=== PATIENT | female | born 1940 | race Caucasian/White ===

== ENCOUNTER 2017-02-24 22:24 | Observation (INO) | payer MEDICARE, SELFPAY | END 2017-02-26 13:15 | disposition home health service (06) | PROVIDERS: Admitting Provider Family Medicine; Emergency Provider Emergency Medicine; Family Provider Family Medicine; Visit Provider Family Medicine | DX: J98.01 Acute bronchospasm (principal); Z72.0 Tobacco use; E11.9 Type 2 diabetes mellitus without complications; I10 Essential (primary) hypertension | CPT/HCPCS: 36415; 71010; 71020; 71275; 80053; 81001; 82150; 82550; 82553; 82962; 83036; 83605; 83690; 83880; 84443; 84484; 85025; 85378; 87040; 87275; 87276; 93005; 94640; 94760; 96365; 96375; 99285; G0378; J2405; Q9967 ==

== ENCOUNTER → 2017-05-21 07:43 | Outpatient (CLI) | payer MEDICARE, SELFPAY ==
--- NOTE | 2017-05-21 07:46 | NM_ITS ---
CARDIOLITE SPECT MYOCARDIAL PERFUSION SCAN, REST AND STRESS: EXERCISE STRESS [facility] REVIEW QGS EF AND WALL MOTION EVALUATION: QPS - PERFUSION EVALUATION HISTORY: SOB, Fatigue, DM DOSE: 9.90 mCi technetium 99m mibi intravenously at rest followed by 29.0 mCi technetium 99m mibi following the intravenous ministration of 0.4 mg of Lexiscan. Resting blood pressure is 139/81. Stress blood pressure 111/53. FINDINGS: Ejection fraction is calculated to be 74%. SPECT images reveal severely decreased activity throughout the entire inferior wall. Rest images reveal virtually no change. Gated images calculated ejection fraction of 74% with normal wall motion IMPRESSION: Large inferior wall defect associated with normal wall motion. It is unusual for women to develop diaphragm attenuation although it is possible based on body habitus. Clinical correlation is advised
--- NOTE | 2017-05-21 07:46 | CA_ITS ---
PROCEDURE: 2-D M-mode and color Doppler study INDICATIONS FOR THE TEST: Chest pain COPD Heart Murmur Tobacco SmokingX Palpitations Fatigue Syncope EdemaX Hypertension Diabetes Mellitus Rheumatic Fever SOBXXDOEXObesityXHyperlipidemia Family History HD Additional History PATIENT INFORMATION HEIGHT: 64 WEIGHT:238 GENDER: Female B/P:112/80 2-D/M-MODE INTERPRETATION: 2-D MEASUREMENTS OBSERVED VALUES IN CMS Right Ventricular Dimension (RVDd) 1.7 Interventricular Septum (Thickness)(IVsd) .9 Left Ventricular Internal Dimensions(LVIDd) 5.6 Left Ventricular Posterior Wall (Thickness)(LVPWd) .9 Aortic Root 2.8 Aortic Cusp Separation 1.6 Left Atrial Dimensions (LAD) 3.4 2D 1. Left atrium is mildly enlarged, left ventricle is normal size, left ventricle wall thickness is upper limit of the normal, visually estimated ejection fraction 55% with no obvious regional wall motion abnormality. 2. The right atrium and right ventricle are normal size and contractility. 3. The aortic valve is minimally thickened and fibrosed. 4. The mitral and tricuspid valve leaflets are minimally thickened. 5. The pulmonic valve is poorly visualized. 6. No significant pericardial effusion noted. DOPPLER INTERROGATION: Doppler interrogation of the aortic, mitral and tricuspid valvular presence of mild mitral and tricuspid regurgitation, tricuspid and jet velocity is insufficient for calculation of the right ventricular systolic pressure, grade 1 diastolic dysfunction seen without tissue Doppler evidence of raised left atrial pressure. CONCLUSION: 1. Mildly enlarged left atrium, normal left ventricular size, visually estimated ejection fraction 55% with no obvious regional wall motion abnormality, grade 1 diastolic dysfunction seen without tissue Doppler evidence of raised left atrial pressure. 2. Mild mitral and tricuspid regurgitation 3. No significant pericardial effusion noted.
--- NOTE | 2017-05-21 08:51 | HMH.ITSHM ---
PREDNISONE LASIX MULTIVITAMIN METFORMIN ADVAIR ALLBUTEROL SPIRONOLACTONE OXYGEN
== END ==
PROVIDERS: Family Provider Family Medicine; PCP Family Medicine; Visit Provider Internal Medicine
DX: R06.02 Shortness of breath (principal)
CPT/HCPCS: 78452; 93017; 93306; A9502; J2785

== ENCOUNTER 2017-05-30 06:54 | Day surgery (SDC) | payer MEDICARE, SELFPAY ==
[2017-05-30] VITALS (17 sets, daily range): BP systolic 94–155; BP diastolic 46–70; PULSE 64–87; RESP 16–20; TEMP 36.6; O2SAT 90–98; BMI 40.7; BMI 40.6
--- NOTE | 2017-05-30 06:58 | IR_ITS ---
CARDIAC CATHETERIZATION DATE OF CATHETERIZATION:05/30/2017 9:12 AM PROCEDURES: 1. Right heart catheterization 2. Left heart catheterization 3. Left ventriculogram 4. Selective coronary angiogram INDICATION FOR TEST: 1. Abnormal Myoview 2. 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 COMPLICATIONS: None ESTIMATED BLOOD LOSS: Less than 10 ml. TECHNIQUE: One percent lidocaine was used to anesthetize the right anterior aspect of the right wrist. The right radial artery was accessed via the Seldinger technique and a 6 Telugu hydrophilic sheath was placed in the right radial artery. Following this one percent lidocaine was used to anesthetize the right anterior aspect of the right neck. The right internal jugular vein was accessed via the Seldinger technique and a 7 Telugu sheath was placed in the right internal jugular vein. Following this an arterial cocktail was administered using heparin verapamil and nitroglycerin into the right radial sheath. A trap catheter was used to perform left heart catheterization left ventriculogram and selective coronary angiography while a [place]-Elisa catheter was used to perform right heart catheterization. Saturations were obtained in the pulmonary artery and right atrium. At the end of the procedure the arterial sheath was removed good hemostasis was achieved using Traclet band. Patient was transferred to the postop holding area in stable condition for venous sheath removal ANGIOGRAPHIC RESULTS: 1. The left main artery normal 2. The left anterior descending artery is normal 3. The circumflex artery is non dominant and is normal 4. The right coronary artery dominant normal 5. The V[place]LE[place]AS ventriculogram reveals normal 65% 6. The left ventricular end-diastolic pressure 10 HEMODYNAMICS: Pulmonary artery occlusion pressure is 10 mm Hg. Pulmonary arterial pressure is 25/15 mm Hg. Right atrial pressure is 10 mm Hg. SATURATIONS: PA is 79 %. RA is 79 %. IMPRESSION: 1. Normal coronary arteries 2. Normal ejection fraction 3. Normal left ventricular end-diastolic pressure 4. Normal cardiac and pulmonary pressures PLAN: 1. Patient's class IV symptoms appear to be from deconditioning rather than cardiopulmonary disease 2. Physical therapy weight loss and risk factor modification
[2017-05-30 07:57] LABS: Basophils # 0.1 K/mm3 (0-0.2); Basophils % 0.6 % (0.1-2.0); Eosinophils # 0.5 K/mm3 (0.0-0.4); Eosinophils % 5.8 % (0.1-12.0); Hematocrit 47.8 % (37.0-47.0); Hemoglobin 15.9 g/dL (12.2-16.2); Lymphocytes # 2.2 K/mm3 (0.7-4.5); Lymphocytes % 24.2 K/mm3 (10-50); Mean Corpuscular HGB Conc 33.4 g/dL (31.8-35.4); Mean Corpuscular Hemoglobin 31.5 pg (27.0-31.2); Mean Corpuscular Volume 94.6 fl (81-99); Mean Platelet Volume 9.3 fl (7.4-10.4); Monocytes # 0.5 K/mm3 (0.1-1.0); Monocytes % 6.1 % (1.7-9.3); Neutrophils # 5.6 K/mm3 (1.8-7.8); Neutrophils % 63.3 % (37.0-80.0); Platelet Count 224 K/mm3 (142-424); Red Blood Count 5.05 M/mm3 (4.20-5.40); Red Cell Distribution Width 12.9 % (11.5-17.5); White Blood Count 8.9 K/mm3 (4.8-10.8)
[2017-05-30 08:17] LABS: Anion Gap 11.5 mEq/L (5-15); Blood Urea Nitrogen 39 mg/dL (7-18); Carbon Dioxide 29 mmol/L (21.0-32.0); Chloride 98 mmol/L (98-107); Creatinine Clearance Estimated 53 mL/min (0-300); Creatinine,Serum 1.44 mg/dL (0.55-1.02); Estimated Glomerular Filt Rate 35 ml/min (>60); GFR (African American) 43 ML/MIN (>60); Potassium 4.5 mmoL/L (3.5-5.1); Sodium 134 mmol/L (136-145)
[2017-05-30 08:30] LABS: Glucose 99 mg/dL (74-106)
[2017-05-30 10:25] LABS: CATHL Arterial O2 SAT 79.2 % (90-100); CATHL Venous O2 SAT 79.2 % (75-80)
== END 2017-05-30 13:15 | disposition home or self-care (01) ==
LOC: CATHLAB 06:57
PROVIDERS: Family Provider Family Medicine; PCP Family Medicine; Visit Provider Internal Medicine
DX: I50.9 Heart failure, unspecified (principal); R06.02 Shortness of breath; R94.39 Abnormal result of other cardiovascular function study; I10 Essential (primary) hypertension; I20.9 Angina pectoris, unspecified
CPT/HCPCS: 80048; 82810; 85025; 93460; 99152; C1725; C1769; C1894; J1644; Q9967

== ENCOUNTER → 2019-03-24 14:20 | Outpatient (CLI) | payer MEDICARE, OTHER, SELFPAY ==
[2019-03-24 14:46] LABS: Blood Urea Nitrogen 14 mg/dL (7-18); Creatinine,Serum 0.96 mg/dL (0.55-1.02); Estimated Glomerular Filt Rate 56 ml/min (>60); GFR (African American) 68 ML/MIN (>60)
--- NOTE | 2019-03-24 15:02 | MR_ITS ---
PROCEDURE: MR HEAD/BRAIN WO/W CON CLINICAL INDICATION: LOSS OF BALANCE, FALLS FREQUENTLY COMPARISON: No exams were available for comparison TECHNIQUE: Routine multiplanar multisequence exam with/without contrast was performed.. 22 milliliters of ProHance was administered. FINDINGS: There is atrophy compatible with the stated age. A moderate amount of nonenhancing FLAIR/T2 hyperintensity is seen in the bilateral cerebral white matter and in the basilar betsy likely due to small bricklayer helper vessel ischemic gliotic disease. There is no acute infarction intracranial hemorrhage mass mass effect or extra-axial fluid collection. There is mild mucosal thickening of sinusitis in the bilateral maxillary sinuses. a.m. 9 millimeter postinflammatory mucous retention cyst is seen in the right maxillary sinus and a 5 millimeter 1 in the left maxillary. There is mild partial opacification of ethmoid air cells. IMPRESSION: No acute intracranial pathology. 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 Sinusitis. Dictated by: Jack Salinas 03/24/2019 17:29 Electronically signed by Jack Salinas in [place] 03/24/2019 17:29
== END ==
PROVIDERS: PCP Family Medicine; Visit Provider Family Medicine
DX: R26.89 Other abnormalities of gait and mobility (principal); R29.6 Repeated falls; Z99.89 Dependence on other enabling machines and devices
CPT/HCPCS: 36415; 70553; 82565; 84520; A9576

== ENCOUNTER → 2019-03-31 12:48 | Outpatient (CLI) | payer MEDICARE, OTHER, SELFPAY ==
--- NOTE | 2019-03-31 12:54 | CT_ITS ---
PROCEDURE: CT LUNG SCREENING CLINICAL INDICATION: HX TOBACCO USE Forty pack-year smoking history, asymptomatic for lung cancer COMPARISON: [facility] CTA-CHEST from 02/25/2017 TECHNIQUE: The exam was performed on a GE Light Speed [address] scanner using 2.90 mGy CTDI. A low dose helical CT CHEST was performed on a multi-detector scanner. All CT scans at the facility use one or more dose reduction, viz: automated exposure control, ma/kV adjustment per patient size (including targeted exams where dose is matched to indication, i.e. head), or iterative reconstruction technique. The LDCT was performed in a facility that meets the criteria for the screening program. Data regarding this exam was submitted to ACR which is an approved registry. The order for this exam indicates that it came as a result of a lung cancer screening counseling shard decision-making visit that included all the elements required of such a visit including smoking cessation. The radiologist interpreting this exam meets the CMS criteria for the LDCT lung cancer screening program. The exam is reported using the Lung-RADS classification scale and reported to the ACR registry. NOTE: This study was performed for the specific purposes of lung cancer screening and is not an alternative to diagnostic chest CT. RADIATION DOSE: CTDI vol(CT dose Index-volume) = 2.90mG DLP (Dose Length Product) = 108.90 mGcm FINDINGS: Changes of COPD. Old granulomatous disease. Scattered areas of scarring. No suspicious pulmonary nodules OTHER FINDINGS: Coronary artery calcifications. Mild pericardial thickening. Cholelithiasis IMPRESSION: Lung rads category 1, negative Cholelithiasis Recommend annual screening LD CT Dictated by: Geovanni Beatty MD 04/07/2019 10:25 Electronically signed by Geovanni Beatty MD in [place] 04/07/2019 10:25
--- NOTE | 2019-03-31 12:54 | XR_ITS ---
PROCEDURE: XR DEXA AXIAL SKELETON CLINICAL HISTORY: OSTEOPAROSIS COMPARISON: No exams were available for comparison FINDINGS: Total right femoral neck density is 0.813 grams/centimeters sq with a T-score of -1.1 consistent with osteopenia. Left hip density is 0.669 grams/centimeters sq with a T-score -2.2 consistent with osteopenia. L1-L4 density is 0.880 with a T-score of -1.5 consistent with osteopenia. IMPRESSION: Osteopenia with moderate fracture risk. Treatment advised. Suggest follow-up exam in 2 years. Dictated by: Geovanni Beatty MD 03/31/2019 19:02 Electronically signed by Geovanni Beatty MD in [place] 03/31/2019 19:02
--- NOTE | 2019-03-31 12:54 | MM_ITS ---
PROCEDURE: MM DIG SCREENING MAMM BI W/CAD CLINICAL INDICATION: SCREENIN COMPARISON: MM MAMMO DIGITAL SCREENING W CAD BILAT from 07/23/2017 MM MAMMO DIGITAL MINISTERIO DIAGN BILAT from 08/15/2017 MM MAMMO DIGITAL DIAGNOSTIC W CAD BILAT from 02/13/2018 , outside films TECHNIQUE: Standard CC and MLO images and 3D Tomosynthisis was obtained. R2 CAD reviewed. FINDINGS: Mild to moderate scattered fibroglandular densities are seen in both breasts. There are stable benign-appearing nodular densities deep to the nipple right breast. There is a mole marker right breast. There are couple of benign-appearing calcifications in each breast. There is a stable fatty replaced node left axilla. There is no suspicious lesion and no suspicious microcalcifications. Ministerio images were reviewed. IMPRESSION: Fibrofatty parenchyma with no suspicious lesions seen BI-RAD Category: 2 Benign Finding(s) FOLLOW-UP: 1YR 1 Year Follow-up (A letter has been sent to the patient regarding results of the study.) Dictated by: Dr. Neo Schroeder MD 04/04/2019 15:[address] Neo Schroeder MD in [place] 04/04/2019 15:14
== END ==
PROVIDERS: PCP Family Medicine; Visit Provider Family Medicine
DX: Z12.31 Encounter for screening mammogram for malignant neoplasm of breast (principal); Z87.891 Personal history of nicotine dependence; Z12.2 Encounter for screening for malignant neoplasm of respiratory organs; Z13.820 Encounter for screening for osteoporosis; M81.0 Age-related osteoporosis without current pathological fracture
CPT/HCPCS: 77063; 77067; 77080

== ENCOUNTER → 2019-05-06 10:42 | Outpatient (POV) | payer MEDICARE, OTHER, SELFPAY | PROVIDERS: PCP Otolaryngology; Visit Provider Otolaryngology | DX: Z00.00 Encounter for general adult medical examination without abnormal findings (principal) ==

== ENCOUNTER → 2019-05-21 08:59 | Outpatient (CLI) | payer MEDICARE, OTHER, SELFPAY ==
--- NOTE | 2019-05-21 09:03 | CA_ITS ---
APPROVED REPORT Hotel [employer] Motel Cleaning Supervisor: Lucero Mejias RVT Laterality: Bilateral Study Quality: Good Indications: Dizziness and Vertigo, Unsteady Gait Risk Factors Hypertension: Diabetes Doppler Spectral Velocity Analysis ECA (R) 119.00/12.00 cm/s ECA (L) 70.30/8.20 cm/s dICA (R) 71.10/19.50 cm/s dICA (L) 100.60/33.10 cm/s Maryjane (R) 53.10/16.50 cm/s Maryjane (L) 103.10/31.80 cm/s pICA (R) 62.20/16.80 cm/s pICA (L) 78.90/22.30 cm/s dCCA (R) 111.90/17.40 cm/s dCCA (L) 75.70/22.30 cm/s pCCA (R) 93.40/19.20 cm/s pCCA (L) 66.20/16.50 cm/s Vert (R) 92.80/21.00 cm/s Vert (L) 41.20/10.50 cm/s ICA/CCA 0.64 ICA/CCA 1.36 Conclusion Study suggests less than 20% stenosis of the right internal cartoid artery unchanged from the 07/25/11 study. Study suggests 20-49% (lower end of scale) of the left internal cartoid artery unchanged from the 07/25/11 study. Antegrade flow seen bilateral vertebral arteries. Electronically signed by : Geovanni Beatty MD 05/21/2019 20:19:44
== END ==
PROVIDERS: PCP Family Medicine; Visit Provider Otolaryngology
DX: R42 Dizziness and giddiness (principal)
CPT/HCPCS: 93880

== ENCOUNTER → 2019-06-02 09:29 | Outpatient (CLI) | payer MEDICARE, OTHER, MEDICAID, SELFPAY ==
--- NOTE | 2019-06-02 09:31 | CA_ITS ---
APPROVED REPORT EXAM: Comprehensive 2D, Doppler, and color-flow Echocardiogram Jacket Changer: Svetlana Rubin CRT Ht: 5 ft 3 in Wt: 250lbs BSA: 2.13 BP: 140/78 mmHg Indications: Shortness of Breath, Obesity, Syncope, Fatigue, Hypertension/HDD, smoker 2D Dimensions LVOT 1.96 cm (M/F) 1.5-2.5 M-Mode Dimensions RVDd 2.20 cm (0.9-2.6) LVDd 4.91 cm (3.5-5.7) LVDs 3.17 cm (3.5-5.7) IVSd 1.10 cm (0.6-1.1) PWd 1.10 cm (0.6-1.1) EF (Teich) 64.70% FS 35.40% EDV (Teich) 113.40 mL ESV (Teich) 40.00 mL LV Diastology E/A Ratio 0.77 Mitral Valve MV A Velocity 107.00 (40-130 cm/s) Left Ventricle Left atrium is mildly enlarged, left ventricle is normal size, mild concentric left ventricular hypertrophy, visually estimated ejection fraction 55% with no regional wall motion abnormality, grade 1 diastolic dysfunction seen without tissue Doppler evidence of raise left atrial pressure. Right Ventricle Right atrium and right ventricular normal size and contractility. Aortic Valve Aortic valve is minimally thickened and fibrosed, there is no aortic stenosis or aortic insufficiency. Mitral Valve Mitral valve is grossly normal, there is mild mitral regurgitation. Tricuspid Valve Tricuspid valve is grossly normal, there is mild tricuspid regurgitation, tricuspid regurgitation jet velocity is inadequate for calculation of the right ventricular systolic pressure. Pulmonic Valve Pulmonic valve is poorly visualized. Great Vessels Aortic root is normal size. Pericardium No significant pericardial effusion noted. Conclusion 1. Mildly enlarged left atrium, normal left ventricular size, mild concentric left ventricular hypertrophy, visually estimated ejection fraction 55% with no regional wall motion abnormality, grade 1 diastolic dysfunction seen without tissue Doppler evidence of raise left atrial pressure. 2. Mild mitral and tricuspid regurgitation. 3. No significant pericardial effusion noted. Electronically signed by : Yann Culver, 06/02/2019 17:43:01
== END ==
PROVIDERS: PCP Family Medicine; Visit Provider Urology
DX: R55 Syncope and collapse (principal); R06.02 Shortness of breath
CPT/HCPCS: 93270; 93306

== ENCOUNTER → 2020-10-08 13:42 | Outpatient (CLI) | payer MEDICARE, MEDICAID, SELFPAY ==
[2020-10-08 14:23] LABS: Basophils # 0.1 K/mm3 (0-0.2); Basophils % 1.6 % (0.1-2.0); Eosinophils # 0.4 K/mm3 (0.0-0.4); Eosinophils % 6.9 % (0.1-12.0); Hematocrit 44.1 % (37.0-47.0); Hemoglobin 14.9 g/dL (12.2-16.2); Lymphocytes # 1.5 K/mm3 (0.7-4.5); Lymphocytes % 24.1 % (10-50); Mean Corpuscular HGB Conc 33.9 g/dL (31.8-35.4); Mean Corpuscular Hemoglobin 31.2 pg (27.0-31.2); Mean Corpuscular Volume 91.9 fl (81-99); Mean Platelet Volume 8.7 fl (7.4-10.4); Monocytes # 0.4 K/mm3 (0.1-1.0); Monocytes % 5.7 % (1.7-9.3); Neutrophils # 3.8 K/mm3 (1.8-7.8); Neutrophils % 61.7 % (37.0-80.0); Platelet Count 210 K/mm3 (142-424); Red Blood Count 4.79 M/mm3 (4.20-5.40); White Blood Count 6.2 K/mm3 (4.8-10.8)
[2020-10-08 14:59] LABS: Chloride 93 mmol/L (98-107); Sodium 130 mmol/L (136-145)
[2020-10-08 15:00] LABS: Potassium 4.7 mmoL/L (3.5-5.1)
[2020-10-08 15:02] LABS: Blood Urea Nitrogen 15 mg/dl (7-17); Estimated Glomerular Filt Rate 60 ml/min (>60); GFR (African American) 73 ML/MIN (>60)
[2020-10-08 15:03] LABS: Anion Gap 11.7 mEq/L (5-15); Calcium 9.3 mg/dl (8.4-10.2); Carbon Dioxide 30 mmol/L (22.0-30.0); Glucose 127 mg/dl (74-100)
== END ==
PROVIDERS: Visit Provider Internal Medicine Cardiovascular Disease
DX: I10 Essential (primary) hypertension (principal); I25.10 Atherosclerotic heart disease of native coronary artery without angina pectoris; R06.02 Shortness of breath; R55 Syncope and collapse; R60.9 Edema, unspecified
CPT/HCPCS: 36415; 80048; 85025; U0003

== ENCOUNTER 2020-10-12 08:05 | Day surgery (SDC) | payer MEDICARE, MEDICAID, SELFPAY ==
[2020-10-12 08:14] VITALS: BMI 42.0
[2020-10-12 08:57] VITALS: BP 155/66; PULSE 66; RESP 13; TEMP 36.8; O2SAT 93
[2020-10-12 09:00] VITALS: PULSE 68
[2020-10-12 09:32] VITALS: BP 128/54; PULSE 68; RESP 18; O2SAT 95
[2020-10-12 09:46] VITALS: BP 130/78; PULSE 69; RESP 18; O2SAT 95
--- NOTE | 2020-10-12 12:16 | P.PCN_ITS ---
[facility] Loop Recorder Date: 10/12/20 Time: 09:30 Procedure Performed:: Implantable loop recorder Indication:: syncope Technique:: Patient was brought to the cardiac Special Education Paraprofessional. After informed consent obtained, 1% lidocaine with epinephrine was used to anesthetize the site along the left anterior aspect of the chest near the sternal border. Using the preformed scalpel, an incision was made and using the supplied preloaded apparatus, the loop recorder was placed subcutaneously without difficulty. Following the deployment of the loop recorder interrogation of the device was performed to ensure appropriate voltage was being detected. Once this was verified, Steri- Strips were placed over the incision and the patient was prepped to discharge home. Patient tolerated the procedure well with minimal discomfort. Impression:: Successful implantation of loop recorder Serial Number:: [id number] Plan:: routine post op care. Follow up in office in one week.
== END 2020-10-12 09:50 | disposition home or self-care (01) ==
LOC: CATHLAB 08:08
PROVIDERS: PCP Family Medicine; Visit Provider Internal Medicine
DX: R55 Syncope and collapse (principal); I25.10 Atherosclerotic heart disease of native coronary artery without angina pectoris; I10 Essential (primary) hypertension; F17.210 Nicotine dependence, cigarettes, uncomplicated; Z79.899 Other long term (current) drug therapy
CPT/HCPCS: 33285

== ENCOUNTER → 2021-10-14 12:55 | Outpatient (CLI) | payer MEDICARE, MEDICAID, SELFPAY | PROVIDERS: PCP Family Medicine; Visit Provider Family Medicine | DX: F32.9 Major depressive disorder, single episode, unspecified (principal) ==

== ENCOUNTER → 2021-10-25 14:22 | Outpatient (CLI) | payer MEDICARE, MEDICAID, SELFPAY ==
[2021-10-25 18:58] LABS: Alanine Aminotransferase 18 U/L (12-78); Albumin Level 4.1 g/dl (3.5-5.0); Albumin/Globulin Ratio 1.6 (1.1-1.8); Alkaline Phosphatase 103 U/L (38-126); Anion Gap 12.9 mEq/L (5-15); Aspartate Amino Transferase 24 U/L (14-36); Bilirubin,Total 0.3 mg/dl (0.2-1.3); Blood Urea Nitrogen 25 mg/dl (7-17); Carbon Dioxide 28 mmol/L (22.0-30.0); Chloride 98 mmol/L (98-107); Estimated Glomerular Filt Rate 48 ml/min (>60); GFR (African American) 58 ML/MIN (>60); Globulin 2.6 g/dL (1.3-3.2); Glucose 100 mg/dl (74-100); Potassium 4.9 mmoL/L (3.5-5.1); Sodium 134 mmol/L (136-145); Total Protein,Serum 6.7 g/dl (6.3-8.2)
[2021-10-25 19:27] LABS: Thyroid Stimulating Hormone 1.09 uIU/mL (0.465-4.68)
== END ==
PROVIDERS: PCP Family Medicine; Visit Provider Family Medicine
DX: F32.A Depression, unspecified (principal); I10 Essential (primary) hypertension
CPT/HCPCS: 80053; 84443

== ENCOUNTER → 2022-03-28 16:40 | Outpatient (CLI) | payer MEDICARE, SELFPAY ==
[2022-03-28 19:47] LABS: Alanine Aminotransferase 21 U/L (12-78); Albumin Level 4.4 g/dl (3.5-5.0); Albumin/Globulin Ratio 1.5 (1.1-1.8); Alkaline Phosphatase 62 U/L (38-126); Anion Gap 11.5 mEq/L (5-15); Aspartate Amino Transferase 36 U/L (14-36); Bilirubin,Total 1.1 mg/dl (0.2-1.3); Blood Urea Nitrogen 20 mg/dl (7-17); Calcium 9.2 mg/dl (8.4-10.2); Carbon Dioxide 29 mmol/L (22.0-30.0); Chloride 99 mmol/L (98-107); Estimated Glomerular Filt Rate 69 ml/min (>60); GFR (African American) 83 ML/MIN (>60); Glucose 88 mg/dl (74-100); Potassium 5.5 mmoL/L (3.5-5.1); Sodium 134 mmol/L (136-145); Total Protein,Serum 7.4 g/dl (6.3-8.2)
== END ==
PROVIDERS: PCP Family Medicine; Visit Provider Family Medicine
DX: I10 Essential (primary) hypertension (principal)
CPT/HCPCS: 80053

== ENCOUNTER 2022-03-31 15:26 | Emergency (ER) | payer MEDICARE, SELFPAY ==
[2022-03-31 15:28] VITALS: BP 161/49; PULSE 63; RESP 17; TEMP 36.8; O2SAT 97; BMI 32.5
[2022-03-31 15:39] VITALS: BP 158/52; PULSE 61; RESP 16; O2SAT 95
--- NOTE | 2022-03-31 15:39 | XR_ITS ---
FINAL REPORT CLINICAL HISTORY: fall with trauma to knee FINDINGS: Left knee Four views were obtained. There is no acute fracture or dislocation. The patient is status post arthroplasty change. The hardware is unremarkable. The bones are osteopenic. No soft tissue abnormality is identified. IMPRESSION: No acute process. Reviewed, Interpreted and Dictated by Dipak Loaiza MD Transcribed by Lulu Ace Authenticated and [facility]
--- NOTE | 2022-03-31 15:51 | HMH.EDGENADL ---
Discharge Plan Disposition Patient Disposition: Home, Self-Care Condition: Good Prescriptions Prescriptions: No Action meclizine 25 mg tablet 12.5 mg PO DAILY PRN citalopram 20 mg tablet 10 mg PO DAILY aspirin 81 mg tablet,delayed release (DR/EC) 81 mg PO DAILY Qty: 90 0RF bisoprolol fumarate 10 mg tablet 10 mg PO DAILY Qty: 30 2RF bupropion HCl 150 mg tablet extended release 24 hr 150 mg PO DAILY Qty: 90 1RF hydrochlorothiazide 25 mg tablet 25 mg PO DAILY Qty: 90 3RF meloxicam 7.5 mg tablet 7.5 mg PO DAILY Qty: 90 1RF Referrals Follow up/Referrals: Dipak Michele MD [Primary Care Provider] - See instructions Activity Restrictions/Add. Instructions Additional Instructions/Restrictions: Return immediately to the emergency department if you feel worse in any way. Your x-rays today did not show any fractures or dislocations. Follow-up with your primary care doctor within about 1 week if you continue following frequently. Clinical Impressions Clinical Impression: Contusion of knee, left, Contusion, buttock Instructions Patient Instructions: DI for Contusion Discharge ED Provider: Carla Palafox Adult HPI General Chief complaint: PAIN Stated complaint: AM 1100@home injured L Knee Time Seen by Provider: 03/31/22 15:51 Mode of Arrival: Wheelchair Source of Information: Patient Limitations: No Limitations Description of Symptoms (Recalled from ER Triage Doc. by RN): Patient reports blacking out and falling yesterday. This morning she reports another fall; however, is not sure what happened exactly. She was seen by EMS after falling and refused transport. Bruising to left knee with difficulty bearing weight. History of Present Illness HPI narrative: The patient presents to the emergency department accompanied by her daughter after having fallen approximately 11 AM today. She sustained a left knee and hip injury. According to the daughter, the patient has been falling more frequently lately. The patient denies any other injuries. The patient denies having lost consciousness. Related Data Home Medications Medication Instructions Recorded Confirmed meclizine 25 mg tablet 12.5 mg PO DAILY PRN 12/02/21 03/28/22 citalopram 20 mg tablet 10 mg PO DAILY 02/10/22 03/28/22 Previous Rx's Medication Instructions Recorded aspirin 81 mg tablet,delayed 81 mg PO DAILY #90 tabs 03/29/22 release bisoprolol fumarate 10 mg tablet 10 mg PO DAILY #30 tabs 03/29/22 bupropion HCl 150 mg 24 hr tablet, 150 mg PO DAILY depression #90 tabs 03/29/22 extended release hydrochlorothiazide 25 mg tablet 25 mg PO DAILY #90 tabs 03/29/22 meloxicam 7.5 mg tablet 7.5 mg PO DAILY arthritis #90 tabs 03/29/22 Allergies Allergy/AdvReac Type Severity Reaction Status Date / Time nicotine Allergy Mild REACTION Verified 03/28/22 15:21 TO PATCH procaine [From Novocain] Allergy Unknown CONFUSION Verified 03/28/22 15:21 lisinopril AdvReac Mild COUGH Verified 03/28/22 15:21 [facility] Disclaimer: The information contained in this section may have been updated after the patient was seen, as this information can be updated by other users. Medical History (Updated 03/31/22 @ 16:20 by Carla Palafox MD) Cardiac dysrhythmia Coronary artery disease Depression Diabetes mellitus Edema HTN (hypertension) Muscle cramps SOB (shortness of breath) Syncope Venous insufficiency Surgical History History of loop recorder Social History Smoking Status: Never smoker second hand exposure: No alcohol intake: never current occupational status: retired Travel in the last 8 weeks: None household members: none housing: house current occupational exposures/hazards: No caffeine: No ROS Obtained: Yes All systems reviewed & no additional complaints except as docum
--- NOTE | 2022-03-31 15:53 | XR_ITS ---
FINAL REPORT CLINICAL HISTORY: pain post fall FINDINGS: Left hip Three views were obtained. There is no acute fracture or dislocation. The joint spaces appear normal. No soft tissue abnormality is identified. IMPRESSION: No acute process. Reviewed, Interpreted and Dictated by Dipak Loaiza MD Transcribed by Lulu Ace Authenticated and [facility]
[2022-03-31 16:30] VITALS: BP 148/56; PULSE 67; RESP 17; O2SAT 95
--- NOTE | 2022-03-31 16:49 | PC.NURSE ---
pt being D/C WITH DAUGHTER
[2022-03-31 16:51] VITALS: BP 121/89; PULSE 69; RESP 18; TEMP 36.8; O2SAT 98
== END 2022-03-31 16:56 | disposition home or self-care (01) ==
PROVIDERS: Emergency Provider Emergency Medicine; PCP Family Medicine
DX: S80.02XA Contusion of left knee, initial encounter (principal); S30.0XXA Contusion of lower back and pelvis, initial encounter; W19.XXXA Unspecified fall, initial encounter
CPT/HCPCS: 73502; 73562; 99284

== ENCOUNTER 2022-05-05 20:44 | Emergency (ER) | payer MEDICARE, SELFPAY ==
[2022-05-05 20:44] VITALS: BP 167/51; PULSE 79; RESP 16; TEMP 36.9; O2SAT 93; BMI 35.4
[2022-05-05 20:49] VITALS: BMI 35.4
--- NOTE | 2022-05-05 20:51 | ECG_ITS ---
APPROVED REPORT Exam: Resting ECG HR:78 bpm ECG Measurements Heart Rate 78 AXES MD 174 P 62 QRSd 93 QRS 64 QT 378 T 55 QTc 411 Conclusion SINUS RHYTHM NORMAL ECG UNCONFIRMED REPORT Electronically signed by : Jaxon Glaser MD 05/06/2022 11:46:51
--- NOTE | 2022-05-05 20:52 | XR_ITS ---
PROCEDURE INFORMATION: Exam: XR Chest Exam date and time: 05/05/2022 9:28 PM Age: 82 years old Clinical indication: Injury or trauma; Fall TECHNIQUE: Imaging protocol: Radiologic exam of the chest. Views: 1 view. COMPARISON: CT LUNG SCREENING 03/31/2019 1:00 PM FINDINGS: Tubes, catheters and devices: Cardiac monitoring device is in place. Lungs: Unremarkable. No consolidation. Pleural spaces: Unremarkable. No pleural effusion. No pneumothorax. Heart/Mediastinum: Cardiac silhouette is top-normal in size. Bones/joints: Left shoulder prosthesis is noted. IMPRESSION: No acute disease
--- NOTE | 2022-05-05 20:52 | CT_ITS ---
PROCEDURE INFORMATION: Exam: CT Maxillofacial Without Contrast Exam date and time: 05/05/2022 9:08 PM Age: 82 years old Clinical indication: Injury or trauma; Fall TECHNIQUE: Imaging protocol: Computed tomography of the face without contrast. Radiation optimization: All CT scans at this facility use at least one of these dose optimization techniques: automated exposure control; mA and/or kV adjustment per patient size (includes targeted exams where dose is matched to clinical indication); or iterative reconstruction. REPORTING DATA: Count of CT and Cardiac NM exams in prior 12 months: This patient has received 2 known CTs and 0 known cardiac nuclear medicine studies in the 12 months prior to the current study. COMPARISON: CT HEAD/BRAIN WO CON 05/05/2022 9:05 PM FINDINGS: This exam is limited due to patient motion. Orbital cavities: Orbits are normal. Globes are unremarkable. Bones/joints: No acute fracture. Paranasal sinuses: Mucosal thickening in the ethmoid and maxillary sinuses. The ostiomeatal units are patent bilaterally. Soft tissues: Unremarkable. IMPRESSION: No acute injury.
--- NOTE | 2022-05-05 20:52 | CT_ITS ---
PROCEDURE INFORMATION: Exam: CT Cervical Spine Without Contrast Exam date and time: 05/05/2022 9:10 PM Age: 82 years old Clinical indication: Injury or trauma; Fall TECHNIQUE: Imaging protocol: Computed tomography of the cervical spine without contrast. Radiation optimization: All CT scans at this facility use at least one of these dose optimization techniques: automated exposure control; mA and/or kV adjustment per patient size (includes targeted exams where dose is matched to clinical indication); or iterative reconstruction. REPORTING DATA: Count of CT and Cardiac NM exams in prior 12 months: This patient has received 2 known CTs and 0 known cardiac nuclear medicine studies in the 12 months prior to the current study. COMPARISON: CT FACIAL BONES WO CON 05/05/2022 9:08 PM FINDINGS: This exam is limited due to patient motion. Bones/joints: There are moderate degenerative changes present. Normal alignment. No acute fractures. Lungs: Lung apices are normal. Soft tissues: Unremarkable. IMPRESSION: No acute injury seen on a limited exam.
--- NOTE | 2022-05-05 20:52 | CT_ITS ---
PROCEDURE INFORMATION: Exam: CT Head Without Contrast Exam date and time: 05/05/2022 9:05 PM Age: 82 years old Clinical indication: Injury or trauma; Fall TECHNIQUE: Imaging protocol: Computed tomography of the head without contrast. Radiation optimization: All CT scans at this facility use at least one of these dose optimization techniques: automated exposure control; mA and/or kV adjustment per patient size (includes targeted exams where dose is matched to clinical indication); or iterative reconstruction. REPORTING DATA: Count of CT and Cardiac NM exams in prior 12 months: This patient has received 2 known CTs and 0 known cardiac nuclear medicine studies in the 12 months prior to the current study. COMPARISON: MR HEAD/BRAIN WO/W CON 03/24/2019 3:22 PM FINDINGS: Brain: Age appropriate atrophy and small vessel ischemic change. No evidence of intracranial hemorrhage, mass effect, midline shift or extra-axial fluid collections. Midline structures are normal. Bradley-white matter differentiation is normal. Cerebral ventricles: No ventriculomegaly. Paranasal sinuses: Mucosal thickening in the ethmoid and maxillary sinuses. Mastoid air cells: Visualized mastoid air cells are well aerated. Bones/joints: Unremarkable. No acute fracture. Soft tissues: Unremarkable. Vasculature: Carotid atherosclerotic calcification. IMPRESSION: No acute intracranial injury.
--- NOTE | 2022-05-05 20:52 | XR_ITS ---
PROCEDURE INFORMATION: Exam: XR Pelvis Exam date and time: 05/05/2022 9:28 PM Age: 82 years old Clinical indication: Injury or trauma; Fall TECHNIQUE: Imaging protocol: Radiologic exam of the pelvis. Views: 1 or 2 view. COMPARISON: CR XR HIP LT 2-3V W/PELVIS 03/31/2022 3:46 PM FINDINGS: Bones/joints: Unremarkable. No acute fracture. Soft tissues: Unremarkable. IMPRESSION: No acute findings.
--- NOTE | 2022-05-05 20:53 | XR_ITS ---
PROCEDURE INFORMATION: Exam: XR Left Wrist Exam date and time: 05/05/2022 9:28 PM Age: 82 years old Clinical indication: Injury or trauma; Other: Falll; Additional info: Fall TECHNIQUE: Imaging protocol: Radiologic exam of the left wrist. Views: 3 or more views. COMPARISON: No relevant prior studies available. FINDINGS: Bones/joints: Osseous alignment is normal. No acute fracture evident. Small enchondroma noted in the distal radius. Bones appear osteopenic. Moderate degenerative changes noted at the scaphotrapezoid joint. Soft tissues: Normal. IMPRESSION: Chronic osseous changes. No acute fracture
[2022-05-05 20:57] LABS: Basophils # 0.1 K/mm3 (0-0.2); Basophils % 0.9 % (0.1-2.0); Eosinophils # 0.3 K/mm3 (0.0-0.4); Eosinophils % 2.6 % (0.1-12.0); Hematocrit 44.2 % (37.0-47.0); Hemoglobin 14.5 g/dL (12.2-16.2); Lymphocytes # 1.2 K/mm3 (0.7-4.5); Lymphocytes % 11.4 % (10-50); Mean Corpuscular HGB Conc 32.9 g/dL (31.8-35.4); Mean Corpuscular Hemoglobin 30.7 pg (27.0-31.2); Mean Corpuscular Volume 93.2 fl (81-99); Mean Platelet Volume 8.1 fl (7.4-10.4); Monocytes # 0.5 K/mm3 (0.1-1.0); Monocytes % 4.3 % (1.7-9.3); Neutrophils # 8.5 K/mm3 (1.8-7.8); Neutrophils % 80.8 % (37.0-80.0); Platelet Count 161 K/mm3 (142-424); Red Blood Count 4.74 M/mm3 (4.20-5.40); Red Cell Distribution Width 13.6 % (11.5-17.5); White Blood Count 10.5 K/mm3 (4.8-10.8)
[2022-05-05 21:05] LABS: Alanine Aminotransferase 22 U/L (12-78); Albumin Level 3.9 g/dl (3.5-5.0); Albumin/Globulin Ratio 1.3 (1.1-1.8); Alkaline Phosphatase 79 U/L (38-126); Anion Gap 7.6 mEq/L (5-15); Aspartate Amino Transferase 39 U/L (14-36); Bilirubin,Total 1.1 mg/dl (0.2-1.3); Blood Urea Nitrogen 21 mg/dl (7-17); Calcium 8.9 mg/dl (8.4-10.2); Carbon Dioxide 27 mmol/L (22.0-30.0); Chloride 98 mmol/L (98-107); Creatine Kinase 172 U/L (30-135); Creatinine Clearance Estimated 61 mL/min (50-200); Estimated Glomerular Filt Rate 80 ml/min (>60); GFR (African American) 97 ML/MIN (>60); Glucose 98 mg/dl (74-100); Potassium 4.6 mmoL/L (3.5-5.1); Sodium 128 mmol/L (136-145); Total Protein,Serum 6.9 g/dl (6.3-8.2)
[2022-05-05 21:17] LABS: Troponin I 0.01 ng/ml (0.00-0.034)
--- NOTE | 2022-05-05 21:22 | HMH.EDFALL ---
Discharge Plan Disposition Patient Disposition: Home, Self-Care Prescriptions Prescriptions: No Action citalopram 20 mg tablet 10 mg PO DAILY aspirin 81 mg tablet,delayed release (DR/EC) 81 mg PO DAILY Qty: 90 0RF bisoprolol fumarate 10 mg tablet 10 mg PO DAILY Qty: 30 2RF bupropion HCl 150 mg tablet extended release 24 hr 150 mg PO DAILY Qty: 90 1RF hydrochlorothiazide 25 mg tablet 25 mg PO DAILY Qty: 90 3RF meloxicam 7.5 mg tablet 7.5 mg PO DAILY Qty: 90 1RF meclizine 25 mg tablet See Rx Instructions .ROUTE .COMPLEX Qty: 45 1RF Dose Instruction: TAKE 1/2 TO 1 TABLET BY MOUTH 3 TIMES DAILY NEEDED Rx Instructions: TAKE 1/2 TO 1 TABLET BY MOUTH 3 TIMES DAILY NEEDED Referrals Follow up/Referrals: Ryne SORENSON MD [Primary Care Provider] - See instructions Clinical Impressions Clinical Impression: Contusion of hip, left, Left wrist sprain, Fall, Concussion without loss of consciousness Instructions Patient Instructions: How to Prevent Falls Discharge ED Provider: Jair (ED)Erich Fall HPI General Chief Complaint: Fall Stated Complaint: FALL Time Seen by Provider: 05/05/22 21:22 Mode of Arrival: EMS Source of Information: Patient and EMS Limitations: No Limitations Description of Symptoms (Recalled from ER Triage Doc. by RN): pt states she rolled out of bed aroound 2pm this afternoon and laid on floor till 7:30 when daughter found pt. pt c/o SOA, head pain and lt wrist pain History of Present Illness HPI Narrative: pt reported rolled oob today and has wrist and hip pain - no fever or other c/o MD complaint: fall Onset (ago): hour(s) Fall from: out of bed Fall witnessed: no Place fall occurred: home Loss of consciousness: none Prolonged down time: unclear Symptoms prior to fall: none Location of injury - extremities: Left: thigh Severity: moderate Related Data Home Medications Medication Instructions Recorded Confirmed citalopram 20 mg tablet 10 mg PO DAILY 02/10/22 04/04/22 Previous Rx's Medication Instructions Recorded aspirin 81 mg tablet,delayed 81 mg PO DAILY #90 tabs 03/29/22 release bisoprolol fumarate 10 mg tablet 10 mg PO DAILY #30 tabs 03/29/22 bupropion HCl 150 mg 24 hr tablet, 150 mg PO DAILY depression #90 tabs 03/29/22 extended release hydrochlorothiazide 25 mg tablet 25 mg PO DAILY #90 tabs 03/29/22 meloxicam 7.5 mg tablet 7.5 mg PO DAILY arthritis #90 tabs 03/29/22 meclizine 25 mg tablet See Rx Instructions .Route 04/06/22 .COMPLEX #45 tabs Allergies Allergy/AdvReac Type Severity Reaction Status Date / Time nicotine Allergy Mild REACTION Verified 04/04/22 14:55 TO PATCH procaine [From Novocain] Allergy Unknown CONFUSION Verified 04/04/22 14:55 lisinopril AdvReac Mild COUGH Verified 04/04/22 14:55 [facility] Disclaimer: The information contained in this section may have been updated after the patient was seen, as this information can be updated by other users. Medical History (Updated 05/05/22 @ 23:47 by Erich Adam (ED)MD) Cardiac dysrhythmia Coronary artery disease Depression Diabetes mellitus Edema HTN (hypertension) Muscle cramps SOB (shortness of breath) Syncope Venous insufficiency Weakness Surgical History History of loop recorder Social History Smoking Status: Never smoker second hand exposure: No alcohol intake: never current occupational status: retired Travel in the last 8 weeks: None household members: none housing: house current occupational exposures/hazards: No caffeine: No ROS Obtained: Yes All systems reviewed & no additional complaints except as documented Physical Exam General General appearance: alert Head Head exam: normocephalic Eye Eye exam: Present PERRL and EOMI; Absent nystagmus ENT ENT exam: Present mucou
[2022-05-05 22:32] VITALS: BP 116/44; PULSE 86; O2SAT 92
[2022-05-05 22:34] LABS: Microscopic, Urine URINE MICROSCOPIC (MICROSCOPIC)
--- NOTE | 2022-05-05 22:37 | CT_ITS ---
PROCEDURE INFORMATION: Exam: CT Left Lower Extremity Without Contrast, Hip Exam date and time: 05/05/2022 11:08 PM Age: 82 years old Clinical indication: Pain; Hip; Left; Additional info: Hip pain after fall TECHNIQUE: Imaging protocol: CT of the left lower extremity without contrast was performed. Exam focused on the hip. Radiation optimization: All CT scans at this facility use at least one of these dose optimization techniques: automated exposure control; mA and/or kV adjustment per patient size (includes targeted exams where dose is matched to clinical indication); or iterative reconstruction. REPORTING DATA: Count of CT and Cardiac NM exams in prior 12 months: This patient has received 3 known CTs and 0 known cardiac nuclear medicine studies in the 12 months prior to the current study. COMPARISON: CR XR HIP LT 2-3V W/PELVIS 03/31/2022 3:46 PM FINDINGS: Bones/joints: Osseous alignment is normal. No acute fracture evident. No significant arthritic changes seen in the left hip. Soft tissues: Normal. Vasculature: Scattered vascular calcification is noted in the pelvis. IMPRESSION: No acute fracture
[2022-05-05 22:38] LABS: Appearance,Urine CLEAR (Clear); Bilirubin,Urine Negative (Negative); Blood, Urine TRACE-I (Negative); Color,Urine YELLOW (Yellow); Glucose,Urine (UA) Negative (Negative); Ketones,Urine TRACE (Negative); Leukocyte Esterase,Urine TRACE (Negative); Nitrate,Urine POSITIVE (Negative); Protein,Urine Negative (Negative); Specific Gravity, Urine 1.025 (1.005-1.030); Urobilinogen,Urine 0.2 EU/dl (0.2)
[2022-05-05 22:46] LABS: Bacteria,Urine 4+ /lpf; RBC,Urine Occasional #/hpf (0-3)
--- NOTE | 2022-05-05 23:02 | PC.NURSE ---
with pt permission this nurse updated pt daughter on pt condition at this time
--- NOTE | 2022-05-05 23:12 | PC.NURSE ---
PATIENT GIVEN PILLOW AND LIGHTS TURNED OFF, PATIENT REFUSED BLANKET
[2022-05-05 23:57] VITALS: BP 118/78; PULSE 74; RESP 16; TEMP 36.9; O2SAT 92
== END 2022-05-05 23:59 | disposition home or self-care (01) ==
PROVIDERS: Emergency Provider Emergency Medicine; PCP Family Medicine
DX: S06.0X0A Concussion without loss of consciousness, initial encounter (principal); S70.02XA Contusion of left hip, initial encounter; S63.502A Unspecified sprain of left wrist, initial encounter; W06.XXXA Fall from bed, initial encounter; Z86.79 Personal history of other diseases of the circulatory system; I25.10 Atherosclerotic heart disease of native coronary artery without angina pectoris; F32.A Depression, unspecified; E11.9 Type 2 diabetes mellitus without complications; R60.9 Edema, unspecified; I10 Essential (primary) hypertension; I87.2 Venous insufficiency (chronic) (peripheral)
CPT/HCPCS: 70450; 70486; 71045; 72125; 72170; 73110; 73700; 80053; 81001; 82550; 82553; 84484; 85025; 87086; 87088; 87186; 93005; 96361; 96374; 99285; J0131

== ENCOUNTER 2022-05-07 09:01 | Observation (INO) | payer MEDICARE, MEDICAID, SELFPAY ==
[2022-05-07] VITALS (14 sets, daily range): BP systolic 118–173; BP diastolic 52–70; PULSE 71–90; RESP 15–22; TEMP 36.6–36.8; O2SAT 92–95; BMI 41.8; BMI 42.5; BMI 36.1
--- NOTE | 2022-05-07 09:13 | HMH.EDGENADL ---
Discharge Plan Disposition Patient Disposition: Admitted as Observation Condition: Fair Prescriptions Prescriptions: No Action citalopram 20 mg tablet 10 mg PO DAILY bupropion HCl 150 mg tablet extended release 24 hr 150 mg PO DAILY Qty: 90 1RF meloxicam 7.5 mg tablet 7.5 mg PO DAILY Qty: 90 1RF aspirin 81 mg tablet,delayed release (DR/EC) 81 mg PO DAILY bisoprolol fumarate 10 mg tablet 10 mg PO DAILY meclizine 25 mg tablet 25 mg PO TID PRN (Reason: Dizziness) hydrochlorothiazide 25 mg tablet 25 mg PO DAILY Referrals Follow up/Referrals: Dipak Michele MD [Primary Care Provider] - See instructions Clinical Impressions Clinical Impression: Acute UTI, Weakness, Acute confusion, Multiple falls, Contusion of face, Hyponatremia Discharge ED Provider: Christian Rodriguez General Adult HPI General Chief complaint: Fall Stated complaint: AMS, Weak, Wheezing Time Seen by Provider: 05/07/22 09:14 History of Present Illness HPI narrative: History obtained from patient and daughter. She fell Sunday and was seen in the emergency department. Last night she fell again at about 4 AM. She says she was trying to get out of bed and fell because she was weak. Daughter states that since discharge on Sunday she has gone downhill. She has gotten progressively weaker. She has been confused. She states the patient can hardly even hold up a cup of coffee because she is so generally weak. She cannot get up off of the toilet by herself. No fever. No vomiting or diarrhea. She has a chronic cough and wheezing which daughter feels is a little worse. Patient states since the fall last night she has pain in both hands and both hips which she feels she injured in the fall. She has a bruise noted on the right side of her forehead which she thinks came from the fall on Sunday. Related Data Home Medications Medication Instructions Recorded Confirmed citalopram 20 mg tablet 10 mg PO DAILY mood 02/10/22 05/07/22 aspirin 81 mg tablet,delayed 81 mg PO DAILY Blood thinner 05/07/22 05/07/22 release bisoprolol fumarate 10 mg tablet 10 mg PO DAILY blood pressure 05/07/22 05/07/22 hydrochlorothiazide 25 mg tablet 25 mg PO DAILY blood pressure 05/07/22 05/07/22 meclizine 25 mg tablet 25 mg PO TID PRN Dizziness 05/07/22 05/07/22 Previous Rx's Medication Instructions Recorded bupropion HCl 150 mg 24 hr tablet, 150 mg PO DAILY depression #90 tabs 03/29/22 extended release meloxicam 7.5 mg tablet 7.5 mg PO DAILY arthritis #90 tabs 03/29/22 Allergies Allergy/AdvReac Type Severity Reaction Status Date / Time nicotine Allergy Mild REACTION Verified 04/04/22 14:55 TO PATCH procaine [From Novocain] Allergy Unknown CONFUSION Verified 04/04/22 14:55 lisinopril AdvReac Mild COUGH Verified 04/04/22 14:55 [facility] Disclaimer: The information contained in this section may have been updated after the patient was seen, as this information can be updated by other users. Medical History (Updated 05/07/22 @ 11:37 by Christian Rodriguez MD) Cardiac dysrhythmia Coronary artery disease Depression Diabetes mellitus Edema HTN (hypertension) Muscle cramps SOB (shortness of breath) Syncope Venous insufficiency Weakness Surgical History History of loop recorder Social History Smoking Status: Current every day smoker tobacco type: cigarettes packs per day: 1 second hand exposure: No alcohol intake: never current occupational status: retired Travel in the last 8 weeks: None household members: none housing: house current occupational exposures/hazards: No caffeine: No ROS Obtained: Yes Systems reviewed as appropriate & no additional complaints except as documented Constitutional Constitutional: Denies fever(s), Reports frequent falls, Denies headache(s) an
--- NOTE | 2022-05-07 09:26 | PC.NURSE ---
dr nichols @ [facility]
--- NOTE | 2022-05-07 09:29 | XR_ITS ---
PROCEDURE INFORMATION: Exam: XR Chest Exam date and time: 05/07/2022 9:53 AM Age: 82 years old Clinical indication: Injury or trauma; Fall; Blunt trauma (contusions or hematomas) TECHNIQUE: Imaging protocol: Radiologic exam of the chest. Views: 1 view. COMPARISON: CR XR CHEST PORTABLE 05/05/2022 9:28 PM FINDINGS: Tubes, catheters and devices: Cardiac loop recorder. Lungs: No acute airspace disease. Pleural spaces: No pleural effusion. Heart/Mediastinum: No cardiomegaly. Bones/joints: Osteopenia and degenerative change. Left shoulder arthroplasty. IMPRESSION: No acute airspace or pleural disease.
--- NOTE | 2022-05-07 09:29 | XR_ITS ---
PROCEDURE INFORMATION: Exam: XR Pelvis Exam date and time: 05/07/2022 9:53 AM Age: 82 years old Clinical indication: Injury or trauma; Fall; Blunt trauma (contusions or hematomas); Bilateral; Pelvic region TECHNIQUE: Imaging protocol: Radiologic exam of the pelvis. Views: 1 or 2 view. COMPARISON: CR XR PELVIS 1-2V 05/05/2022 9:28 PM FINDINGS: Bones/joints: No acute bony injury in the visualized pelvis on the single AP view obtained. If an occult fracture is of clinical concern, CT correlation can be performed. Osteopenia and degenerative change. Soft tissues: Diffuse soft tissue enlargement and skin folds. Vasculature: Vascular calcifications. Other findings: Bowel dilatation and prominent stool. IMPRESSION: No acute bony injury in the visualized pelvis on the single AP view obtained.
--- NOTE | 2022-05-07 09:29 | CT_ITS ---
PROCEDURE INFORMATION: Exam: CT Cervical Spine Without Contrast Exam date and time: 05/07/2022 9:58 AM Age: 82 years old Clinical indication: Injury or trauma; Fall TECHNIQUE: Imaging protocol: Computed tomography of the cervical spine without contrast. Radiation optimization: All CT scans at this facility use at least one of these dose optimization techniques: automated exposure control; mA and/or kV adjustment per patient size (includes targeted exams where dose is matched to clinical indication); or iterative reconstruction. REPORTING DATA: Count of CT and Cardiac NM exams in prior 12 months: This patient has received 5 known CTs and 0 known cardiac nuclear medicine studies in the 12 months prior to the current study. COMPARISON: CT CERVICAL SPINE WO CON 05/05/2022 9:10 PM FINDINGS: Bones/joints: Hypertrophic changes are present involving the dens and anterior arch of C1. Mild bilateral neuroforaminal narrowing C3-C7. Mild to moderate disc space narrowing C4-C7 with small anterior and posterior osteophytes. Lungs: Lung apices are normal. Soft tissues: Unremarkable. IMPRESSION: No evidence of cervical spine fracture. Remainder of findings as described.
--- NOTE | 2022-05-07 09:29 | CT_ITS ---
PROCEDURE INFORMATION: Exam: CT Head Without Contrast Exam date and time: 05/07/2022 9:55 AM Age: 82 years old Clinical indication: Injury or trauma; Fall; Blunt trauma (contusions or hematomas); With loss of consciousness; Loss of consciousness for 30 minutes or less; Injury details: Large bruise over right eye and forehead TECHNIQUE: Imaging protocol: Computed tomography of the head without contrast. Radiation optimization: All CT scans at this facility use at least one of these dose optimization techniques: automated exposure control; mA and/or kV adjustment per patient size (includes targeted exams where dose is matched to clinical indication); or iterative reconstruction. REPORTING DATA: Count of CT and Cardiac NM exams in prior 12 months: This patient has received 5 known CTs and 0 known cardiac nuclear medicine studies in the 12 months prior to the current study. COMPARISON: CT HEAD/BRAIN WO CON 05/05/2022 9:05 PM FINDINGS: Brain: Prominent sulci. Patchy hypodensity of the cerebral white matter which are nonspecific but likely secondary to microangiopathic changes. Cerebral ventricles: The ventricles are prominent secondary to diffuse volume loss/atrophy. Paranasal sinuses: Right maxillary mucous retention and mild mucoperiosteal thickening remainder of paranasal sinuses. Mastoid air cells: Visualized mastoid air cells are well aerated. Bones/joints: Unremarkable. No acute fracture. Soft tissues: Mild right frontal and periorbital soft tissue swelling. IMPRESSION: Mild right frontal and periorbital soft tissue swelling and age related changes but no evidence of acute intracranial pathology. Remainder of findings as described above.
--- NOTE | 2022-05-07 09:32 | XR_ITS ---
PROCEDURE INFORMATION: Exam: XR Left Hand Exam date and time: 05/07/2022 9:53 AM Age: 82 years old Clinical indication: Injury or trauma; Fall; Blunt trauma (contusions or hematomas); Hand; Bilateral TECHNIQUE: Imaging protocol: Radiologic exam of the left hand. Views: 3 or more views. COMPARISON: CR XR WRIST LT MIN 3V 05/05/2022 9:28 PM FINDINGS: Bones/joints: Severe polyarticular degenerative change. No acute bony injury in the visualized left hand. Stable calcified enchondroma in the distal radius. Soft tissues: Soft tissue swelling. IMPRESSION: No acute bony injury or malalignment in the visualized left hand.
--- NOTE | 2022-05-07 09:32 | XR_ITS ---
PROCEDURE INFORMATION: Exam: XR Right Hand Exam date and time: 05/07/2022 9:53 AM Age: 82 years old Clinical indication: Injury or trauma; Fall; Blunt trauma (contusions or hematomas); Hand; Bilateral TECHNIQUE: Imaging protocol: Radiologic exam of the right hand. Views: 3 or more views. COMPARISON: No relevant prior studies available. FINDINGS: Bones/joints: Severe polyarticular degenerative change. No acute bony injury in the visualized right hand. Soft tissues: Mild soft tissue swelling. IMPRESSION: No acute bony injury in the visualized right hand.
[2022-05-07 09:34] LABS: Coronavirus 19, PCR Not Detected (NotDetected); Influenza A, PCR Not Detected (NotDetected); Influenza B, PCR Not Detected (NotDetected)
[2022-05-07 09:37] LABS: Basophils # 0.2 K/mm3 (0-0.2); Basophils % 1.4 % (0.1-2.0); Eosinophils # 0.3 K/mm3 (0.0-0.4); Eosinophils % 2.4 % (0.1-12.0); Hematocrit 42.2 % (37.0-47.0); Hemoglobin 13.7 g/dL (12.2-16.2); Lymphocytes # 0.7 K/mm3 (0.7-4.5); Lymphocytes % 5.9 % (10-50); Mean Corpuscular HGB Conc 32.4 g/dL (31.8-35.4); Mean Corpuscular Hemoglobin 30.5 pg (27.0-31.2); Mean Corpuscular Volume 94.2 fl (81-99); Mean Platelet Volume 8.5 fl (7.4-10.4); Monocytes # 0.7 K/mm3 (0.1-1.0); Monocytes % 5.7 % (1.7-9.3); Neutrophils # 10.6 K/mm3 (1.8-7.8); Neutrophils % 84.6 % (37.0-80.0); Platelet Count 166 K/mm3 (142-424); Red Blood Count 4.49 M/mm3 (4.20-5.40); Red Cell Distribution Width 13.7 % (11.5-17.5); White Blood Count 12.5 K/mm3 (4.8-10.8)
--- NOTE | 2022-05-07 09:39 | PC.NURSE ---
pt going to ct
[2022-05-07 09:42] LABS: Alanine Aminotransferase 21 U/L (12-78); Albumin Level 3.7 g/dl (3.5-5.0); Albumin/Globulin Ratio 1.3 (1.1-1.8); Alkaline Phosphatase 72 U/L (38-126); Anion Gap 7.9 mEq/L (5-15); Aspartate Amino Transferase 26 U/L (14-36); Bilirubin,Total 0.8 mg/dl (0.2-1.3); Blood Urea Nitrogen 24 mg/dl (7-17); Calcium 8.5 mg/dl (8.4-10.2); Carbon Dioxide 27 mmol/L (22.0-30.0); Chloride 96 mmol/L (98-107); Creatine Kinase 73 U/L (30-135); Creatinine Clearance Estimated 35 mL/min (50-200); Estimated Glomerular Filt Rate 53 ml/min (>60); GFR (African American) 64 ML/MIN (>60); Globulin 2.8 g/dL (1.3-3.2); Glucose 163 mg/dl (74-100); Potassium 3.9 mmoL/L (3.5-5.1); Sodium 127 mmol/L (136-145); Total Protein,Serum 6.5 g/dl (6.3-8.2)
[2022-05-07 09:43] LABS: Lactic Acid 1.1 mmol/L (0.7-2.1)
--- NOTE | 2022-05-07 10:02 | XR_ITS ---
PROCEDURE INFORMATION: Exam: XR Right Humerus Exam date and time: 05/07/2022 10:17 AM Age: 82 years old Clinical indication: Pain; Upper arm; Right; Additional info: Pain/fall TECHNIQUE: Imaging protocol: Radiologic exam of the right humerus. Views: 2 or more views. COMPARISON: None FINDINGS: Bones/joints: No acute bony injury in the visualized right humerus. Soft tissues: Soft tissue prominence and skin folds. IMPRESSION: No acute bony injury in the visualized right humerus.
[2022-05-07 10:09] LABS: Troponin I < 0.01 ng/ml (0.00-0.034)
--- NOTE | 2022-05-07 10:09 | PC.WOUNDNOTE ---
pt arrived back to room
--- NOTE | 2022-05-07 10:13 | ECG_ITS ---
APPROVED REPORT Exam: Resting ECG HR:77 bpm ECG Measurements Heart Rate 77 AXES MN 175 P 70 QRSd 93 QRS 90 QT 368 T 1 QTc 400 Conclusion SINUS RHYTHM WITH OCCASIONAL SUPRAVENTRICULAR PREMATURE COMPLEXES BORDERLINE ECG UNCONFIRMED REPORT Electronically signed by : Jaxon Glaser MD 05/07/2022 21:07:10
--- NOTE | 2022-05-07 11:15 | PC.NURSE ---
Patient's family came out requesting that the patient needed to use the restroom. Went into room with Jose Roberto PATRICK placed patient on bed tadeo. Obtained a urine sample and cleaned patient up. Also readjusted patient in bed
[2022-05-07 11:17] LABS: Microscopic, Urine URINE MICROSCOPIC (MICROSCOPIC)
--- NOTE | 2022-05-07 11:25 | PC.NURSE ---
pg dr kent whos environmental engineer scientist for [facility] awaiting call back to speak to nubia haddad
[2022-05-07 11:27] LABS: Appearance,Urine CLOUDY (Clear); Bilirubin,Urine Negative (Negative); Blood, Urine 1+ (Negative); Color,Urine DK YELLOW (Yellow); Glucose,Urine (UA) Negative (Negative); Ketones,Urine Negative (Negative); Leukocyte Esterase,Urine TRACE (Negative); Nitrate,Urine POSITIVE (Negative); Protein,Urine Negative (Negative)
--- NOTE | 2022-05-07 11:28 | PC.NURSE ---
er speaking to dr kent about pt
--- NOTE | 2022-05-07 11:31 | PC.NURSE ---
Rounded on patient; patient wanted something to drink. Gave patient water and helped her get her top dentures out. Dentures were placed in patient's own denture cups
--- NOTE | 2022-05-07 11:34 | PC.NURSE ---
Attempted to call warehouse specialist for admission. Will call back in a few minutes
--- NOTE | 2022-05-07 11:37 | PC.NURSE ---
tile setter supervisor notified of admission
--- NOTE | 2022-05-07 12:05 | PC.NURSE ---
Report called Angela PATRICK
--- NOTE | 2022-05-07 12:06 | PC.NURSE ---
adusted pt in bed assisted by debbi rizvi
[2022-05-07 12:12] LABS: Bacteria,Urine 3+ /lpf
--- NOTE | 2022-05-07 13:09 | PC.NURSE ---
arrived to floor at 13:05 by stretcher from ED
--- NOTE | 2022-05-07 18:47 | PC.NURSE ---
PT IS RESTING IN BED. ALERT AND ORIENTED X4. EATING AND DRINKING WELL. PT IS A 2 ASSIST TO HELP WITH ADL'S. ACCORDING TO PT AND PT'S DAUGHTER PT HAS REALLY DECLINED PHYSICALLY OVER THE PAST COUPLE OF WEEKS. PT HAS HAD MULTIPLE FALLS. UNABLE TO COMPLETE ANY OF HER ADL'S AT HOME. PT HAS BEEN 2 ASSIST TO TRANSFER FROM BED TO WHEELCHAIR AT HOME. PT HAS NOT BEEN ABLE TO BATH HERSELF OR GET HERSELF CLEAN AFTER USING THE BATHROOM. BOTH PT IS AGREEABLE TO GO TO REHAB. LUNG SOUNDS DIMINISHED. ABDOMEN SOFT/NON TENDER WITH ACTIVE BOWEL SOUNDS. SCATTERED BRUISING NOTED. WILL CONTINUE TO MONITOR.
[2022-05-08] VITALS (9 sets, daily range): BP systolic 154–192; BP diastolic 63–75; PULSE 71–98; RESP 20–22; TEMP 35.9–36.9; O2SAT 2–94; BMI 37.5; BMI 37.3
--- NOTE | 2022-05-08 06:50 | PC.NURSE ---
PT HAS RESTED VERY LITTLE THIS SHIFT AND HAS BEEN VERY RESTLESS. NO C/O PAIN. VOIDING PER [place]. TURNING IN BED WITH X1 ASSIST. PT PLACED ON 2L NASAL CANNULA FOR COMFORT THIS SHIFT. LUNGS SOUNDS DIMINISHED WITH AUDIBLE WHEEZES.
--- NOTE | 2022-05-08 07:25 | HMH.PHAINT1 ---
Pharmacy Intervention Comments: Medication reconciliation completed using external fill history
[2022-05-08 07:28] LABS: Monocytes # 0.6 K/mm3 (0.1-1.0)
[2022-05-08 07:36] LABS: Basophils % 0.6 % (0.1-2.0); Eosinophils # 0.3 K/mm3 (0.0-0.4); Eosinophils % 3.6 % (0.1-12.0); Hematocrit 37.8 % (37.0-47.0); Lymphocytes # 1.2 K/mm3 (0.7-4.5); Lymphocytes % 15.5 % (10-50); Mean Corpuscular HGB Conc 31.8 g/dL (31.8-35.4); Mean Corpuscular Hemoglobin 30.4 pg (27.0-31.2); Mean Corpuscular Volume 95.6 fl (81-99); Mean Platelet Volume 9.6 fl (7.4-10.4); Monocytes % 7.9 % (1.7-9.3); Neutrophils # 5.4 K/mm3 (1.8-7.8); Neutrophils % 72.4 % (37.0-80.0); Platelet Count 167 K/mm3 (142-424); Red Blood Count 3.95 M/mm3 (4.20-5.40); Red Cell Distribution Width 13.2 % (11.5-17.5); White Blood Count 7.5 K/mm3 (4.8-10.8)
[2022-05-08 07:38] LABS: Anion Gap 8.7 mEq/L (5-15); Blood Urea Nitrogen 16 mg/dl (7-17); Calcium 8.2 mg/dl (8.4-10.2); Carbon Dioxide 26 mmol/L (22.0-30.0); Chloride 97 mmol/L (98-107); Creatinine Clearance Estimated 67 mL/min (50-200); Estimated Glomerular Filt Rate 80 ml/min (>60); GFR (African American) 97 ML/MIN (>60); Glucose 87 mg/dl (74-100); Potassium 3.7 mmoL/L (3.5-5.1); Sodium 128 mmol/L (136-145)
[2022-05-08 08:12] LABS: ABG Base Excess -2.4 mmol/L (-2.4-2.3); ABG HCO3 24.2 mmhg (22.0-26.0); ABG Oxygen Saturation 100 % (90-100); ABG PH 7.29 mmol/L (7.35-7.45); ABG PO2 234.3 mmhg (80-100); ABG TCO2 25.8 mmhg (23-27)
[2022-05-08 08:16] LABS: Allen's Test Acceptable; Oxygen 2L %; Source Right Radial
--- NOTE | 2022-05-08 08:17 | XR_ITS ---
FINAL REPORT CLINICAL HISTORY: Respiratory distress COMPARISON: 05/07/2022 FINDINGS: A single portable view of the chest was obtained. There is cardiomegaly and mild pulmonary vascular congestion. A loop recorder is present. There is mild but worsening bibasilar atelectasis. The mediastinum is within normal limits. There are postoperative changes in the left shoulder. IMPRESSION: Cardiomegaly with mild pulmonary vascular congestion. Mild but worsening bibasilar atelectasis. Reviewed, Interpreted and Dictated by Santos Alcazar III, MD Transcribed by Dorothea Cortes Authenticated and [facility]
[2022-05-08 08:18] LABS: ABG PCO2 51.6 mmhg (35.0-45.0)
--- NOTE | 2022-05-08 08:24 | EXP.HP ---
History of Present Illness *Admission Date: 05/07/22 *Reason for visit:: Altered mental status; shortness of breath; falls *History of present illness: Ms. Talavera is an 82-year-old female with a history of hypertension, hyperlipidemia, diabetes mellitus, chronic kidney disease, coronary artery disease, paroxysmal atrial fibrillation with watchman's device placed 05/2021 who has had several recent falls. Following is ER note: HPI narrative: History obtained from patient and daughter. She fell Sunday and was seen in the emergency department.? Last night she fell again at about 4 AM.? She says she was trying to get out of bed and fell because she was weak.? Daughter states that since discharge on Sunday she has gone downhill.? She has gotten progressively weaker.? She has been confused.? She states the patient can hardly even hold up a cup of coffee because she is so generally weak.? She cannot get up off of the toilet by herself.? No fever.? No vomiting or diarrhea.? She has a chronic cough and wheezing which daughter feels is a little worse. Patient states since the fall last night she has pain in both hands and both hips which she feels she injured in the fall.? She has a bruise noted on the right side of her forehead which she thinks came from the fall on Sunday. Patient had imaging of bilateral hands, humerus, pelvis and CT scans all negative for fracture. Chest x-ray showed no acute processes. After evaluation in the emergency room she was admitted for further evaluation and treatment. This a.m. patient denies shortness of breath although she is very difficult to arouse. She denies pain. She has a labored respiratory effort. [facility] Disclaimer: The information contained in this section may have been updated after the patient was seen, as this information can be updated by other users. Medical History (Updated 05/08/22 @ 08:56 by Lulu Gastelum APRN) Cardiac dysrhythmia Coronary artery disease Depression Diabetes mellitus Edema Femoral artery pseudo-aneurysm, right HTN (hypertension) Muscle cramps Presence of Watchman left atrial appendage closure device SOB (shortness of breath) Syncope Venous insufficiency Weakness Surgical History (Updated 05/08/22 @ 08:47 by Lulu Gastelum APRN) H/O knee surgery History of loop recorder History of total right knee replacement Tubal ligation evaluation Family History (Updated 05/08/22 @ 08:44 by Lulu Gastelum APRN) Family history of cancer Tubal ligation evaluation Stroke Social History (Updated 05/07/22 @ 13:53 by Patricia Chi RN) Smoking Status: Current every day smoker tobacco type: cigarettes packs per day: 1 second hand exposure: No alcohol intake: never current occupational status: retired Travel in the last 8 weeks: None household members: none housing: house current occupational exposures/hazards: No caffeine: No Review of Systems Constitutional Constitutional: Reports frequent falls, Denies headache(s), Reports poor appetite and Reports weakness Eyes Eyes: Denies change in vision ENT Ears, Nose, Mouth, and Throat: Reports disequilibrium, Reports dizziness, Denies otalgia, Denies headache(s), Denies sore throat and Reports vertigo *Cardiovascular Cardiovascular: Denies chest pain and Reports dyspnea *Respiratory Respiratory: Denies cough and Reports dyspnea *Gastrointestinal Gastrointestinal: Denies abdominal pain, Denies change in stool character and Reports vomiting *Genitourinary Genitourinary: Denies difficulty voiding *Musculoskeletal Musculoskeletal: Reports abnormal gait, Reports muscle weakness and Denies numbness *Neurologic Neurologic: Reports abnormal gait, Reports confusion, Reports disequilibrium, Reports dizziness, Reports frequent falls, Denies headache(s), Denies numbness, Reports vertigo and Reports weakness Psychiatric Psychiatric: Reports confusion Meds Home Medications and Allergies Home Medications Medication Ins
--- NOTE | 2022-05-08 09:51 | HMH.PTEV ---
Physical Therapy Evaluation Rehab PT IP Evaluation Start: 05/07/22 12:01 Freq: ONCE Status: Active Protocol: Document 05/08/22 09:37 PHORNE (Rec: 05/08/22 09:51 PHORNE [id number]) Subjective/History History History 82 yowf adm to [facility] with UTI, falls, general weakness. She suffered two falls at home prior to adm, nut no major injuries noted. She is difficult to arouse this am, but answers questions appropriately. She reports she lives alone, 3 steps to enter the home, She uses a RW for ambulation at baseline. Subjective Subjective Current she reports feeling very tired and weak. She c/o pain and soreness in L hand. Rehab PT IP Eval Objective Appearance Patient Behavior Appropriate Patient Orientation Person,Place,Time Difficulty following instructions none Speech Pattern Clear Ambulation Patient Able to Ambulate Yes Ambulation Observation IP General Gait Pattern Observation Shuffling Step Ambulation Distance (feet) 2 Ambulation Assistive Device Rolling Walker Ambulation Ability Minimal x 2 (25% assist) Balance Ability to Arise Able, uses arms to help Sitting Balance Steady, safe Standing Balance Steady, wide stance Dynamic Sitting Balance Ability Fair Dynamic Standing Balance Ability Poor Transfers Bed Transfer Ability Moderate x 2 (50% assist) Sit to Stand Bed Transfer Ability Moderate x 2 (50% assist) Rehab PT IP prob,goals,plan Problems Date of Evaluation: 05/08/22 PT IP Problems Bed Mobility,Transfers,Gait Rehab Potential Rehab Potential Good Plan PT Intervention Plan Bed Mobility,Transfers,Gait, Self care,Therapeutic Exercise PT Plan Frequency Daily Duration LOS Discharge Goals Bed Transfer Ability Minimal x 1 (25% assist) Sit to Stand Chair Transfer Ability Minimal x 1 (25% assist) Ambulation Assistive Device Rolling Walker Ambulation Distance (feet) 20 Discharge Plan PT Discharge Plan Pt is currently most appropriate for rehab placement once medically stable. If she returns home in her present condition she will be at significant risk of f
--- NOTE | 2022-05-08 09:58 | HMH.OTEV ---
OT Inpatient Evaluation Rehab OT IP Evaluation Start: 05/07/22 12:01 Freq: ONCE Status: Active Protocol: Document 05/08/22 09:39 [facility] (Rec: 05/08/22 09:58 [facility] [id number]) Rehab OT IP Assessment Subjective History Pt was seen resting in bed upon arrivial. Pt was oriented x4 person, place, , and month. Pt was agreeable to engage in therapy evaluation. Pt was admitted to [facility] on due to Altered mental status; shortness of breath; falls. Pt reports that she was independent in all ADLs and IADLs before admission. She reports that she lived alone in a house with 3 steps upon entering the house and 4 steps on the backside of the house. She reports that she was still able to drive and complete grocery shopping tasks. Pt has a past medical history of the following: Cardiac dysrhythmia Coronary artery disease Depression Diabetes mellitus Edema Femoral artery pseudo-aneurysm , right HTN (hypertension) Muscle cramps Presence of Watchman left atrial appendage closure device SOB (shortness of breath) Syncope Venous insufficiency Weakness Pt appeared to be slightly confused during the evaluation . Pt was left resting in bed with call lan and all other needs within reach. Subjective I am tired. Objective Patient Orientation Person,Place,Birthday,Month Upper Extremity Gross ROM Min Limitation <25% Shoulder ROM Limitations Muscle Weakness Elbow ROM Limitations Muscle Weakness Wrist Limitations of Range of Motion Muscle Weakness Bed Mobility bed mobility-scooting,bed
--- NOTE | 2022-05-08 10:08 | CARE MANAGER ---
Addendum entered by Jolanta Babin RN 05/09/22 10:00: [facility] has accepted patient and insurance has given an authorization. Patient is planned for discharge to [facility] today, and plans are for daughter to transfer. Original Note: Per PT/OT this morning, patient is appropriate for skilled care upon discharge. Patient's daughter has stated that she would like for CM to attempt to secure a skilled bed at [facility] or [facility]. I will reach out to those facilities to check on bed availability and fax referrals if appropriate. CM will continue to follow.
[2022-05-08 10:27] LABS: Microscopic,Cath URINE MICROSCOPIC (MICROSCOPIC)
[2022-05-08 10:31] LABS: Appearance,Urine/Cath CLEAR (Clear); Bilirubin,Cath Negative (Negative); Blood, Urine/Cath TRACE-I (Negative); Color,Urine/Cath YELLOW (Yellow); Glucose,Urine/Cath (UA) Negative (Negative); Ketones,Urine/Cath Negative (Negative); Leukocyte Esterase,Cath Negative (Negative); Nitrate,Cath Negative (Negative); Protein,Urine/Cath Negative (Negative); Specific Gravity, Urine/Cath 1.025 (1.005-1.030); Urobilinogen,Cath 0.2 EU/dl (0.2)
[2022-05-08 11:07] LABS: Bacteria,Urine/Cath TRACE /lpf
--- NOTE | 2022-05-08 13:58 | PC.NURSE ---
Pt continues to be sleepy and fatigued but arousable. Able to follow commands. Ate a small amount of lunch but required frequent stimulation to stay awake while eating. IVP lasix with greater than 2L urine output via rudolph. On 2L O2 via nasal cannula. Denies pain. Antibiotics administered per orders. Possible discharge to [facility] [facility] for rehab when able.
[2022-05-09] VITALS (9 sets, daily range): BP systolic 126–180; BP diastolic 44–68; PULSE 69–108; RESP 17–20; TEMP 36.6–36.8; O2SAT 3–97; BMI 35.7
--- NOTE | 2022-05-09 01:11 | PC.NURSE ---
Spoke with Dr Michele on the phone, made him aware of patient's vital signs, 180/68 blood pressure, pulse 105, stated to give patient a one time dose of lisinopril, made him aware patient is allergic. No other orders were received from md. patient is in no acute distress at the moment. will continue to monitor.
--- NOTE | 2022-05-09 05:04 | PC.NURSE ---
patient rested well through the night. stable on 3L nc. rudolph to bsd draining yellow urine. receiving iv fluids
[2022-05-09 06:58] LABS: MANUAL DIFFERENTIAL MANUAL DIFFERENTIAL (MANUAL DIFF)
[2022-05-09 07:02] LABS: Basophils % 0.1 % (0.1-2.0); Hematocrit 39.8 % (37.0-47.0); Lymphocytes # 0.5 K/mm3 (0.7-4.5); Lymphocytes % 6.3 % (10-50); Mean Corpuscular HGB Conc 32.6 g/dL (31.8-35.4); Mean Corpuscular Hemoglobin 31.5 pg (27.0-31.2); Mean Corpuscular Volume 96.9 fl (81-99); Mean Platelet Volume 8.8 fl (7.4-10.4); Monocytes # 0.3 K/mm3 (0.1-1.0); Monocytes % 3.9 % (1.7-9.3); Neutrophils # 7.6 K/mm3 (1.8-7.8); Neutrophils % 89.7 % (37.0-80.0); Platelet Count 179 K/mm3 (142-424); Red Blood Count 4.11 M/mm3 (4.20-5.40); Red Cell Distribution Width 13.1 % (11.5-17.5); White Blood Count 8.4 K/mm3 (4.8-10.8)
[2022-05-09 07:22] LABS: Chloride 98 mmol/L (98-107); Potassium 4.2 mmoL/L (3.5-5.1); Sodium 129 mmol/L (136-145)
[2022-05-09 07:25] LABS: Alanine Aminotransferase 18 U/L (12-78); Albumin Level 3.2 g/dl (3.5-5.0); Albumin/Globulin Ratio 1.1 (1.1-1.8); Alkaline Phosphatase 66 U/L (38-126); Anion Gap 8.2 mEq/L (5-15); Aspartate Amino Transferase 24 U/L (14-36); Bilirubin,Total 0.4 mg/dl (0.2-1.3); Blood Urea Nitrogen 22 mg/dl (7-17); Calcium 8.3 mg/dl (8.4-10.2); Carbon Dioxide 27 mmol/L (22.0-30.0); Creatinine Clearance Estimated 64 mL/min (50-200); Estimated Glomerular Filt Rate 95 ml/min (>60); GFR (African American) 116 ML/MIN (>60); Globulin 2.9 g/dL (1.3-3.2); Glucose 139 mg/dl (74-100); Total Protein,Serum 6.1 g/dl (6.3-8.2)
[2022-05-09 07:38] LABS: Lymphocytes % 6 % (10-50); Monocytes % 2 % (2-9); Neutrophils % 92 % (42-76); Platelet Estimate Normal; RBC Morphology Normal; Total Cells Counted 100
--- NOTE | 2022-05-09 08:11 | EXP.PN ---
Subjective *Date: 05/09/22 *Time: 08:11 Interval history: Patient does not remember anything from yesterday. She thinks she slept during the night. She feels she is breathing okay. She denies chest pain. She is concerned about her blood pressure. She is eating her breakfast without difficulty today. Renal function is satisfactory. Sodium is 129 with a normal potassium. Chest x-ray completed yesterday showed the following FINDINGS: A single portable view of the chest was obtained.? There is cardiomegaly and mild pulmonary vascular congestion.? A loop recorder is present.? There is mild but worsening bibasilar atelectasis.? The mediastinum is within normal limits.? There are postoperative changes in the left shoulder. IMPRESSION: Cardiomegaly with mild pulmonary vascular congestion.? Mild but worsening bibasilar atelectasis. Exam Data for Last 24 hours Vital signs and Labs for Last 24 Hours: Temp Pulse Resp BP Pulse Ox 97.9 F 78 17 160/58 H 3 L 05/09/22 07:35 05/09/22 07:35 05/09/22 07:35 05/09/22 07:35 05/09/22 08:00 Laboratory Results - last 24 hr 05/08/22 08:10: Specimen Source Right radial, O2 % 2l, ABG pH 7.29 L, ABG pCO2 51.6 H, ABG pO2 234.3 H, ABG HCO3 24.2, ABG Total CO2 25.8, ABG O2 Saturation 100, ABG Base Excess -2.4, Geovanni Test Acceptable 05/08/22 10:10: Urine Color Yellow, Urine Appearance Clear, Urine pH 6.0, Ur Specific [place] 1.025, Urine Protein Negative, Urine Glucose (UA) Negative, Urine Ketones Negative, Urine Blood Trace-i, Urine Nitrate Negative, Urine Bilirubin Negative, Urine Urobilinogen 0.2, Ur Leukocyte Esterase Negative, Urine RBC None, Urine WBC 3-5, Ur Squamous Epith Cells 3-5, Urine Bacteria Trace 05/09/22 06:10: WBC 8.4, RBC 4.11 L, Hgb 13.0, Hct 39.8, MCV 96.9, MCH 31.5 H, MCHC 32.6, RDW 13.1, Plt Count 179, MPV 8.8, Neut % (Auto) 89.7 H, Lymph % (Auto) 6.3 L, [place] % (Auto) 3.9, Eos % (Auto) 0.0 L, Baso % (Auto) 0.1, Neut # (Auto) 7.6, Lymph # (Auto) 0.5 L, [place] # (Auto) 0.3, Eos # (Auto) 0.0, Baso # (Auto) 0.0, Total Counted 100, Neutrophils % (Manual) 92 H, Lymphocytes % (Manual) 6 L, Monocytes % (Manual) 2, Platelet Estimate Normal, RBC Morphology Normal 05/09/22 06:10: Sodium 129 L, Potassium 4.2, Chloride 98, Carbon Dioxide 27, Anion Gap 8.2, BUN 22 H D, Creatinine 0.60, Estimated Creat Clear 64, Estimated GFR 95, Est GFR ( Amer) 116, Glucose 139 H D, Calcium 8.3 L, Total Bilirubin 0.4, AST 24, ALT 18, Alkaline Phosphatase 66, Total Protein 6.1 L, Albumin 3.2 L, Globulin 2.9, Albumin/Globulin Ratio 1.1 I & O for Last 24 hours: Intake & Output 05/06/22 05/07/22 05/08/22 05/09/22 11:59 11:59 11:59 11:59 Intake Total 1202 / 1202 2196 / 2196 Output Total 1500 / 1500 3000 / 3000 Balance -298 / -298 -804 / -804 Weight 240 lb 220 lb 1.6 oz 209 lb 9 oz Microbiology Reports for the Last 24 Hours: Microbiology 05/07/22 11:14 Urine,Clean Catch Urine Culture - Preliminary Constitutional Constitutional: no acute distress and cooperative Comments: Awake and alert and conversant. Cognition is much improved today. *Routine Respiratory Exam Respiratory: Present wheezes (Scattered throughout) and crackles (Bilateral basilar crackles posteriorly); Absent accessory muscle use *Routine Cardiovascular Exam Cardiovascular: Present RRR and murmur *Routine Abdominal Exam Abdominal: Present soft and normoactive bowel sounds; Absent tenderness Comments: Gunn catheter to bedside drainage *Routine Extremities Exam Extremities: Absent edema Comments: Bilateral SCUDs on Assessment and Plan *Assessment and plan (1) Paroxysmal atrial fibrillation: Status: Acute Category: Medical Code(s): I48.0 - Paroxysmal atrial fibrillation (2) HTN (hypertension): Status: Chronic Qualifiers: Hypertension type: primary hypertension Qualified Code(s): I10 - Essential (primary) hypertension Category: Medical Code(s): I10 - Essenti
--- NOTE | 2022-05-09 12:18 | EXP.DC.SUM ---
General Admission date:: 05/07/22 Discharge date: 05/09/22 HPI HPI HPI: Ms. Talavera is an 82-year-old female with a history of hypertension, hyperlipidemia, diabetes mellitus, chronic kidney disease, coronary artery disease, paroxysmal atrial fibrillation with watchman's device placed 05/2021 who was noted to have several recent falls. Following is ER note: HPI narrative: History obtained from patient and daughter. She fell Sunday and was seen in the emergency department.? Last night she fell again at about 4 AM.? She says she was trying to get out of bed and fell because she was weak.? Daughter states that since discharge on Sunday she has gone downhill.? She has gotten progressively weaker.? She has been confused.? She states the patient can hardly even hold up a cup of coffee because she is so generally weak.? She cannot get up off of the toilet by herself.? No fever.? No vomiting or diarrhea.? She has a chronic cough and wheezing which daughter feels is a little worse. Patient states since the fall last night she has pain in both hands and both hips which she feels she injured in the fall.? She has a bruise noted on the right side of her forehead which she thinks came from the fall on Sunday. Patient had imaging of bilateral hands, humerus, pelvis and CT scans all negative for fracture. Chest x-ray showed no acute processes. After evaluation in the emergency room she was admitted for further evaluation and treatment. This a.m. patient denies shortness of breath although she is very difficult to arouse. She denies pain. She has a labored respiratory effort. Hospital Course Hospital Course Hospital Course: All imaging of completed in the emergency room were negative for fractures. After admission patient was found to be in congestive heart failure. The first day she was very lethargic with poor responses. She had very minimal breath sounds posteriorly along with some audible wheezing and labored respiratory effort. Chest x-ray showed pulmonary congestion. She was given 40 mg of IV Lasix and diuresed well. She was also started on DuoNebs 3 times daily and given a dose of Solu-Medrol. She improved throughout the day and by evening she was awake and alert. She was able to sleep. The following a.m. on 05/09/2022 she was very conversant and clear. She denied chest pain and shortness of breath. Respiratory effort was even and unlabored. She continued with a good urinary output. She had been started on Rocephin for a previous E. coli urinary tract infection. Renal function remained good and electrolytes showed a low sodium for which she was started on potassium. Echocardiogram was completed with pending results. Blood pressure remained elevated and she was started on amlodipine 5 mg daily. PT and OT felt patient was most appropriate for outpatient rehab especially due to her recent frequent falls. On 05/09/2022 patient was felt to be stable to be discharged to [facility] for ongoing rehab. She will be followed by Dr. Michele in the facility. Meds per medication reconciliation sheet. Exam Data for Last 24 hours Vital signs and Labs for Last 24 Hours: Temp Pulse Resp BP Pulse Ox 97.9 F 72 17 160/58 H 94 L 05/09/22 07:35 05/09/22 09:43 05/09/22 07:35 05/09/22 07:35 05/09/22 11:23 Laboratory Results - last 24 hr 05/09/22 06:10: WBC 8.4, RBC 4.11 L, Hgb 13.0, Hct 39.8, MCV 96.9, MCH 31.5 H, MCHC 32.6, RDW 13.1, Plt Count 179, MPV 8.8, Neut % (Auto) 89.7 H, Lymph % (Auto) 6.3 L, [place] % (Auto) 3.9, Eos % (Auto) 0.0 L, Baso % (Auto) 0.1, Neut # (Auto) 7.6, Lymph # (Auto) 0.5 L, [place] # (Auto) 0.3, Eos # (Auto) 0.0, Baso # (Auto) 0.0, Total Counted 100, Neutrophils % (Manual) 92 H, Lymphocytes % (Manual) 6 L, Monocytes % (Manual) 2, Platelet Estimate Normal, RBC Morphology Normal 05/09/22 06:10: Sodium 129 L, Potassium 4.2, Chloride 98, Carbon Dioxide 27, Anion Gap 8.2, BUN 22 H D, Creatinine 0.60, Estimated Creat Clear 64, Estimated GFR
--- NOTE | 2022-05-09 13:27 | PC.NURSE ---
Attempted to titrate patient's O2 to room air. Up to chair with PT. O2 sats 88%. O2 at 1L via nasal cannula replaced.
--- NOTE | 2022-05-10 14:13 | CARE MANAGER ---
Contacted [facility] and inquired about patient and they state she is doing well. Deny any questions or concerns. CELINA Nelson
== END 2022-05-09 14:33 ==
LOC: ER 11:31 → 2ND 13:12
PROVIDERS: Nurse Practitioner Family; Admitting Provider Family Medicine; Emergency Provider Emergency Medicine; PCP Family Medicine; Visit Provider Family Medicine
DX: N39.0 Urinary tract infection, site not specified (principal); R29.6 Repeated falls; I13.0 Hypertensive heart and chronic kidney disease with heart failure and stage 1 through stage 4 chronic kidney disease, or unspecified chronic kidney disease; I48.0 Paroxysmal atrial fibrillation; I25.10 Atherosclerotic heart disease of native coronary artery without angina pectoris; E87.1 Hypo-osmolality and hyponatremia; B96.20 Unspecified Escherichia coli [E. coli] as the cause of diseases classified elsewhere; I50.9 Heart failure, unspecified; Z79.899 Other long term (current) drug therapy; F17.210 Nicotine dependence, cigarettes, uncomplicated; N18.9 Chronic kidney disease, unspecified; R53.1 Weakness; Z20.822 Contact with and (suspected) exposure to COVID-19
CPT/HCPCS: G0378; 36415; 70450; 71045; 72125; 72170; 73060; 73130; 80048; 80053; 81001; 82550; 82803; 83605; 84484; 85007; 85014; 85018; 85025; 85048; 85049; 87040; 87086; 93005; 93306; 94640; 94761; 97110; 97116; 97162; 97166; 97530; 99285; C9803; J0696; U0003; U0005

== ENCOUNTER 2023-07-24 08:48 | Outpatient (POV) | payer MEDICARE, SELFPAY | END 2023-07-24 23:59 | disposition home or self-care (01) | LOC: SC 08:50 | PROVIDERS: PCP Family Medicine; Visit Provider Dermatology | DX: Z00.00 Encounter for general adult medical examination without abnormal findings (principal) ==